=== PATIENT | male | born 1955 | race Caucasian/White ===

== ENCOUNTER → 2019-11-14 | Outpatient (CLI) | payer MEDICARE ==
--- NOTE | 2019-11-14 14:12 | CARD ---
MR#: [id number] Date of Study: 11/14/2019 Ordering Physician: TRAVIS BOLANOS, Referring Physician: TRAVIS BOLANOS, Tech: Brandie Mcginnis APPROVED REPORT EXAM: Two-dimensional and M-mode echocardiogram with Doppler and color Doppler. Other Information Quality : AverageHR: 101bpm INDICATION CVA/TIA RISK FACTORS Hypertension 2D DIMENSIONS RVDd3.6 (2.9-3.5cm)Left Atrium(2D)3.6 (1.6-4.0cm) IVSd1.0 (0.7-1.1cm)Aortic Root(2D)3.1 (2.0-3.7cm) LVDd5.0 (3.9-5.9cm)LVOT Diameter2.0 (1.8-2.4cm) PWd1.2 (0.7-1.1cm)LVDs2.4 (2.5-4.0cm) FS (%) 50.8 %SV95.3 ml LVEF(%)81.9 (>50%) Aortic Valve AoV Peak Marco Antonio.156.4cm/sAoV VTI24.9cm AO Peak GR.9.8mmHgLVOT Peak Marco Antonio.130.8cm/s LVOT VTI 24.64cmAO Mean GR.5mmHg BREANNE (VMAX)1.48fw0GFS (VTI)3.19cm2 Mitral Valve MV E Bdarscwz94.1cm/sMV DECEL ILPQ676gk MV A Uakcemdp64.0cm/sMV E Mean Gr.2mmHg MV XDM76kbF/A Ratio0.9 MVA (PHT)4.22cm2 TDI E/Lateral E'7.2E/Medial E'6.8 Pulmonary Valve PV Peak Goozmlzc148.2cm/sPV Peak Grad.6mmHg Tricuspid Valve TR P. Tjvifcer138td/sRAP [id number] TR Peak Gr.98hcImTFBA00veLw Pulmonary Vein S1 Gkfmfkim12.1cm/sD2 Xscferdn99.1cm/s PVa [id number] LEFT VENTRICLE The left ventricle is normal size. There is borderline to mild concentric left ventricular hypertroph y. The left ventricular systolic function is normal. The Ejection Fraction is 60%. There is normal LV segmental wall motion. Transmitral Doppler flow pattern is Grade I-abnormal relaxation pattern. RIGHT VENTRICLE The right ventricle is normal size. There is normal right ventricular wall thickness. The right ventr icular systolic function is normal. ATRIA The left atrium size is normal. The right atrium size is normal. The interatrial septum is intact wit h no evidence for an atrial septal defect or patent foramen ovale as noted on 2-D or Doppler imaging. AORTIC VALVE The aortic valve is thickened but opens well. Doppler and Color Flow revealed no significant aortic r egurgitation. There is no significant aortic valvular stenosis. MITRAL VALVE The mitral valve is thickened but opens well. There is no evidence of mitral valve prolapse. There is no mitral valve stenosis. Doppler and Color Flow revealed no mitral valve regurgitation noted. TRICUSPID VALVE The tricuspid valve is not well visualized. Doppler and Color Flow revealed trace tricuspid regurgita tion with an estimated PAP of 27 mmHg. There is no tricuspid valve stenosis. PULMONIC VALVE The pulmonic valve is not well visualized. Doppler and Color Flow revealed no pulmonic valvular regur gitation. GREAT VESSELS The aortic root is normal in size. The IVC is normal in size and collapses >50% with inspiration. PERICARDIAL EFFUSION There is no evidence of significant pericardial effusion. Critical Notification Critical Value: No <Conclusion> The left ventricular systolic function is normal. The Ejection Fraction is 60%. There is normal LV segmental wall motion. Transmitral Doppler flow pattern is Grade I-abnormal relaxation pattern. Doppler and Color Flow revealed trace tricuspid regurgitation with an estimated PAP of 27 mmHg. There is no evidence of significant pericardial effusion. Signed by : Julian Hays, Electronically Approved : 11/14/2019 14:12:15
== END | disposition home or self-care (01) ==
LOC: ECHO 10:58
PROVIDERS: ATTEND Specialist
DX: I11.9 Hypertensive heart disease without heart failure (principal); G45.9 Transient cerebral ischemic attack, unspecified
CPT/HCPCS: 93306